=== PATIENT | male | born 1935 | race African-American/Black ===

== ENCOUNTER 2017-03-10 18:10 | Inpatient (IN) ==
[2017-03-10] MEDS ORDERED: HYDROmorphone 2 MG/1 ML VIAL IV STA (18:31)
[2017-03-10] MEDS ORDERED: ADENOSINE 6 MG/2 ML VIAL ONE ×2 (18:31→18:40)
[2017-03-10] MEDS ORDERED: ONDANSETRON 4 MG/2 ML VIAL IV STA (18:31)
[2017-03-10] MEDS ORDERED: ADENOSINE 6 MG/2 ML VIAL IV STA ×3 (18:31→18:58)
[2017-03-10] MEDS ORDERED: METOPROLOL TARTRATE 5 MG/5 ML VIAL IV ONE (18:39)
[2017-03-10 18:49] LABS: Basophils % 0.1 % (0.0-0.8); Eosinophils % 0.3 % (0.00-10.9); Hematocrit 39.3 VOL% (42.0-52.0); Hemoglobin 13.2 GM/DL (14.0-18.0); Immature Granulocytes % 0.2 %; Immature Granulocytes Absolute 0.02 #; Lymphocytes # 1.1 10*3/uL (1.4-4.0); Lymphocytes % 12.1 % (21.2-54.2); Mean Corpuscular HGB Conc 33.6 GM/DL (32-36); Mean Corpuscular Hemoglobin 34 PG (27-34); Mean Corpuscular Volume 100.8 FL (87-102); Monocytes # 0.2 10*3/uL (0.11-0.8); Monocytes % 2.3 % (1.7-12.7); Neutrophils # 7.4 10*3/uL (1.4-7.4); Platelet Count 208 T/CUMM (130-400); Red Cell Distribution Width 13.9 % (9.3-17.3); White Blood Count 8.7 T/CUMM (4-12)
[2017-03-10 18:57] LABS: PT Patient Result 10.6 SECS; Partial Thromboplastin Time 25.7 SECS (0-40)
[2017-03-10] MEDS ORDERED: METOPROLOL TARTRATE 5 MG/5 ML VIAL IV STA ×2 (19:00→22:08)
[2017-03-10 19:27] LABS: Troponin I Only < 0.015 NG/ML (0.00-0.045)
[2017-03-10 19:32] LABS: Barbiturates Screen,Urine Negative (Negative); Benzodiazepines Screen,Urine Negative (Negative); Cannabinoid Screen,Urine Negative (Negative); Opiate Screen,Urine Negative (Negative); Phencyclidine Screen,Urine Negative (Negative)
[2017-03-10 19:34] LABS: Albumin 4.2 G/DL (3.4-5.0); Bilirubin,Total 0.5 MG/DL (0.2-1.0); Calcium 10.7 MG/DL (8.5-10.1); Osmolality,Calculated 285.4 MOS/KG (273-304); Potassium 4.3 MMOL/L (3.5-5.1); Thyroid Stimulating Hormone 3.35 uIU/ml (0.358-3.74); Total Protein 8.3 G/DL (6.4-8.3)
[2017-03-10] MEDS ORDERED: HYDROmorphone 2 MG/1 ML VIAL ONE (19:38)
[2017-03-10] MEDS ORDERED: ONDANSETRON 4 MG/2 ML VIAL ONE (19:38)
[2017-03-10] MEDS ORDERED: GLUCAGON 1 MG VIAL IM PRN (22:08)
[2017-03-10] MEDS ORDERED: DEXTROSE 50% 25 GM/50 ML VIAL IV PRN (22:08)
[2017-03-10] MEDS ORDERED: ONDANSETRON 4 MG/2 ML VIAL IV PRN (22:08)
[2017-03-10] MEDS ORDERED: ACETAMINOPHEN 325 MG TABLET PO PRN (22:08)
[2017-03-10 22:41] LABS: Apearance,Urine Slightly Hazy (Clear); Bacteria,Urine Occasional /HPF (Few); Bilirubin,Urine Negative (Negative); Blood, Urine Small mg/dL (Negative); Glucose,Urine (UA) 50 mg/dL (Negative); Ketones,Urine 5 mg/dL (Negative); Mucus,Urine Occasional /LPF (Occasional); Nitrite,Urine Negative (Negative); Protein,Urine Negative; RBC,Urine <1 /HPF (0-4); Squamous Epithelial Cell,Urine Occasional /HPF (0-10); Urine Color Yellow (Yellow); Urine Specific Gravity 1.011 (1.001-1.035); Urine Urobilinogen < 2.0 EU/DL (0.2-1.0); WBC,Urine 1 /HPF (0-6)
[2017-03-10] MEDS: SODIUM CHLORIDE 0.9% 1,000 ML IV SCH (23:01)
[2017-03-10] MEDS: METOPROLOL TARTRATE 50 MG TABLET PO SCH (23:01)
[2017-03-11 00:01] LABS: Free T4 (Free Thyroxine) 1.07 NG/DL (0.76-1.46); Troponin I Only 0.039 NG/ML (0.00-0.045)
[2017-03-11] MEDS: INSULIN REGULAR 100 UNIT/ML SUBCUT SCH ×4 (00:52→23:46)
[2017-03-11 05:16] LABS: Basophils % 0.3 % (0.0-0.8); Eosinophils # 0.1 10*3/uL (0.0-0.87); Eosinophils % 1.3 % (0.00-10.9); Hematocrit 29.6 VOL% (42.0-52.0); Hemoglobin 10.1 GM/DL (14.0-18.0); Immature Granulocytes % 0.5 %; Immature Granulocytes Absolute 0.05 #; Lymphocytes # 0.6 10*3/uL (1.4-4.0); Lymphocytes % 6.2 % (21.2-54.2); Mean Corpuscular HGB Conc 34.1 GM/DL (32-36); Mean Corpuscular Hemoglobin 34 PG (27-34); Mean Corpuscular Volume 99.3 FL (87-102); Mean Platelet Volume 10.1 FL (9.6-12.0); Monocytes # 0.4 10*3/uL (0.11-0.8); Monocytes % 3.8 % (1.7-12.7); Neutrophils # 8.7 10*3/uL (1.4-7.4); Neutrophils % 87.9 % (38.7-73.9); Platelet Count 176 T/CUMM (130-400); Red Blood Count 2.98 MC/CUMM (3.8-5.5); Red Cell Distribution Width 13.9 % (9.3-17.3); White Blood Count 9.9 T/CUMM (4-12)
[2017-03-11 05:47] LABS: Troponin I Only 0.039 NG/ML (0.00-0.045)
[2017-03-11 05:48] LABS: Albumin 3.2 G/DL (3.4-5.0); Bilirubin,Total 1.1 MG/DL (0.2-1.0); Calcium 9.3 MG/DL (8.5-10.1); Osmolality,Calculated 289.3 MOS/KG (273-304); Potassium 4.6 MMOL/L (3.5-5.1); Risk Ratio 2.17; Total Protein 6.3 G/DL (6.4-8.3); VLDL CHOLESTEROL 8.4 MG/DL
[2017-03-11] MEDS: SERTRALINE 50 MG TABLET PO SCH (08:39)
[2017-03-11] MEDS: PANTOPRAZOLE 40 MG TABLET PO SCH (08:39)
[2017-03-11] MEDS: METOPROLOL TARTRATE 50 MG TABLET PO SCH ×2 (08:40→23:48)
[2017-03-11] MEDS: ATORVASTATIN 20 MG TABLET PO SCH (08:40)
[2017-03-11] MEDS ORDERED: ceFAZolin 2,000 MG in PREMIX 1 EACH IV ONE (11:30)
[2017-03-11] MEDS ORDERED: BISACODYL 10 MG SUPP RECTAL PRN (12:35)
[2017-03-11] MEDS ORDERED: diphenhydrAMINE CAP 25 MG CAPSULE PO PRN (12:35)
[2017-03-11] MEDS ORDERED: PROMETHAZINE 25 MG/1 ML VIAL IM PRN (12:35)
[2017-03-11] MEDS ORDERED: LACTULOSE 20 GM/30 ML UDCUP PO PRN (12:35)
[2017-03-11] MEDS ORDERED: MAGNESIUM HYDROXIDE SUSP 30 ML UDCUP PO PRN (12:35)
[2017-03-11] MEDS ORDERED: TEMAZEPAM 7.5 MG CAPSULE PO PRN (12:35)
[2017-03-11] MEDS ORDERED: MIDAZOLAM 2 MG/2 ML VIAL ONE (14:24)
[2017-03-11] MEDS ORDERED: PROPOFOL 200 MG/20 ML VIAL IV ONE (14:24)
[2017-03-11] MEDS ORDERED: fentaNYL 100 MCG/2 ML VIAL ONE (14:24)
[2017-03-11] MEDS ORDERED: LACTATED RINGERS 1,000 ML IV ONE (14:25)
[2017-03-11] MEDS: MORPHINE 2 MG/1 ML SYRINGE IV PRN (18:20)
[2017-03-11] MEDS: glipiZIDE 5 MG TABLET PO SCH (21:35)
[2017-03-11] MEDS: DOCUSATE SODIUM 100 MG CAPSULE PO SCH (21:35)
[2017-03-11] MEDS: ceFAZolin 2,000 MG in PREMIX 1 EACH IV SCH (22:40)
[2017-03-11] MEDS: GABAPENTIN 300 MG CAPSULE PO SCH (23:48)
[2017-03-12] MEDS: MORPHINE 2 MG/1 ML SYRINGE IV PRN ×2 (00:13→06:10)
[2017-03-12] MEDS: SODIUM CHLORIDE 0.9% 1,000 ML IV SCH ×3 (00:14→12:55)
[2017-03-12] MEDS: INSULIN REGULAR 100 UNIT/ML SUBCUT SCH ×4 (00:16→18:35)
[2017-03-12] MEDS: ceFAZolin 2,000 MG in PREMIX 1 EACH IV SCH (00:43)
[2017-03-12] MEDS: FONDAPARINUX 2.5 MG/0.5 ML SYRINGE SUBCUT SCH (06:09)
[2017-03-12 07:18] LABS: Basophils % 0.3 % (0.0-0.8); Eosinophils # 0.2 10*3/uL (0.0-0.87); Eosinophils % 2.6 % (0.00-10.9); Hematocrit 28.6 VOL% (42.0-52.0); Hemoglobin 9.7 GM/DL (14.0-18.0); Immature Granulocytes % 0.6 %; Immature Granulocytes Absolute 0.04 #; Lymphocytes # 0.8 10*3/uL (1.4-4.0); Lymphocytes % 11.3 % (21.2-54.2); Mean Corpuscular HGB Conc 33.9 GM/DL (32-36); Mean Corpuscular Hemoglobin 34 PG (27-34); Mean Platelet Volume 10.1 FL (9.6-12.0); Monocytes # 0.5 10*3/uL (0.11-0.8); Monocytes % 6.7 % (1.7-12.7); Neutrophils # 5.7 10*3/uL (1.4-7.4); Neutrophils % 78.5 % (38.7-73.9); Platelet Count 143 T/CUMM (130-400); Red Blood Count 2.89 MC/CUMM (3.8-5.5); Red Cell Distribution Width 14.2 % (9.3-17.3); White Blood Count 7.3 T/CUMM (4-12)
[2017-03-12 07:44] LABS: Calcium 8.9 MG/DL (8.5-10.1); Osmolality,Calculated 285.4 MOS/KG (273-304)
[2017-03-12] MEDS: GABAPENTIN 300 MG CAPSULE PO SCH ×2 (09:01→22:05)
[2017-03-12] MEDS: PIOGLITAZONE 15 MG TABLET PO SCH (09:01)
[2017-03-12] MEDS: SERTRALINE 50 MG TABLET PO SCH (09:01)
[2017-03-12] MEDS: METOPROLOL TARTRATE 50 MG TABLET PO SCH ×2 (09:01→22:05)
[2017-03-12] MEDS: PANTOPRAZOLE 40 MG TABLET PO SCH (09:01)
[2017-03-12] MEDS: DOCUSATE SODIUM 100 MG CAPSULE PO SCH ×2 (09:01→22:06)
[2017-03-12] MEDS: ATORVASTATIN 20 MG TABLET PO SCH (09:02)
[2017-03-12] MEDS: glipiZIDE 5 MG TABLET PO SCH ×2 (09:02→22:05)
[2017-03-12] MEDS: ASPIRIN EC 81 MG TABLET PO SCH (09:02)
[2017-03-13] MEDS: INSULIN REGULAR 100 UNIT/ML SUBCUT SCH ×4 (00:41→18:35)
[2017-03-13] MEDS: SODIUM CHLORIDE 0.9% 1,000 ML IV SCH (02:25)
[2017-03-13] MEDS: FONDAPARINUX 2.5 MG/0.5 ML SYRINGE SUBCUT SCH (06:38)
[2017-03-13 07:10] LABS: Basophils % 0.3 % (0.0-0.8); Eosinophils # 0.3 10*3/uL (0.0-0.87); Eosinophils % 4.3 % (0.00-10.9); Hematocrit 25.6 VOL% (42.0-52.0); Hemoglobin 8.8 GM/DL (14.0-18.0); Immature Granulocytes % 0.6 %; Immature Granulocytes Absolute 0.04 #; Lymphocytes # 0.9 10*3/uL (1.4-4.0); Lymphocytes % 12.6 % (21.2-54.2); Mean Corpuscular HGB Conc 34.4 GM/DL (32-36); Mean Corpuscular Hemoglobin 34 PG (27-34); Mean Corpuscular Volume 98.1 FL (87-102); Mean Platelet Volume 10.6 FL (9.6-12.0); Monocytes # 0.5 10*3/uL (0.11-0.8); Monocytes % 7.2 % (1.7-12.7); Neutrophils # 5.2 10*3/uL (1.4-7.4); Platelet Count 132 T/CUMM (130-400); Red Blood Count 2.61 MC/CUMM (3.8-5.5); Red Cell Distribution Width 14.1 % (9.3-17.3); White Blood Count 6.9 T/CUMM (4-12)
[2017-03-13] MEDS: ATORVASTATIN 20 MG TABLET PO SCH (08:22)
[2017-03-13] MEDS: METOPROLOL TARTRATE 50 MG TABLET PO SCH ×2 (08:23→20:37)
[2017-03-13] MEDS: DOCUSATE SODIUM 100 MG CAPSULE PO SCH ×2 (08:23→20:37)
[2017-03-13] MEDS: GABAPENTIN 300 MG CAPSULE PO SCH ×2 (08:24→20:37)
[2017-03-13] MEDS: ASPIRIN EC 81 MG TABLET PO SCH (08:24)
[2017-03-13] MEDS: PANTOPRAZOLE 40 MG TABLET PO SCH (08:24)
[2017-03-13] MEDS: SERTRALINE 50 MG TABLET PO SCH (08:24)
[2017-03-13] MEDS: PIOGLITAZONE 15 MG TABLET PO SCH (08:25)
[2017-03-13] MEDS: glipiZIDE 5 MG TABLET PO SCH ×2 (08:25→20:37)
[2017-03-14] MEDS: INSULIN REGULAR 100 UNIT/ML SUBCUT SCH ×4 (00:09→18:00)
[2017-03-14 05:02] LABS: Basophils % 0.2 % (0.0-0.8); Eosinophils # 0.4 10*3/uL (0.0-0.87); Eosinophils % 6.3 % (0.00-10.9); Hematocrit 22.2 VOL% (42.0-52.0); Hemoglobin 7.7 GM/DL (14.0-18.0); Immature Granulocytes % 0.4 %; Immature Granulocytes Absolute 0.02 #; Lymphocytes # 0.9 10*3/uL (1.4-4.0); Lymphocytes % 16.4 % (21.2-54.2); Mean Corpuscular HGB Conc 34.7 GM/DL (32-36); Mean Corpuscular Hemoglobin 34 PG (27-34); Mean Corpuscular Volume 97.8 FL (87-102); Mean Platelet Volume 10.8 FL (9.6-12.0); Monocytes # 0.5 10*3/uL (0.11-0.8); Monocytes % 8.6 % (1.7-12.7); Neutrophils # 3.8 10*3/uL (1.4-7.4); Neutrophils % 68.1 % (38.7-73.9); Platelet Count 131 T/CUMM (130-400); Red Blood Count 2.27 MC/CUMM (3.8-5.5); Red Cell Distribution Width 13.8 % (9.3-17.3); White Blood Count 5.6 T/CUMM (4-12)
[2017-03-14] MEDS: FONDAPARINUX 2.5 MG/0.5 ML SYRINGE SUBCUT SCH (06:12)
[2017-03-14] MEDS: PANTOPRAZOLE 40 MG TABLET PO SCH (08:04)
[2017-03-14] MEDS: PIOGLITAZONE 15 MG TABLET PO SCH (08:04)
[2017-03-14] MEDS: SERTRALINE 50 MG TABLET PO SCH (08:04)
[2017-03-14] MEDS: glipiZIDE 5 MG TABLET PO SCH ×2 (08:05→20:47)
[2017-03-14] MEDS: ASPIRIN EC 81 MG TABLET PO SCH (08:05)
[2017-03-14] MEDS: GABAPENTIN 300 MG CAPSULE PO SCH ×2 (08:05→20:47)
[2017-03-14] MEDS: ATORVASTATIN 20 MG TABLET PO SCH (08:05)
[2017-03-14] MEDS: METOPROLOL TARTRATE 50 MG TABLET PO SCH ×2 (08:06→20:47)
[2017-03-14] MEDS: DOCUSATE SODIUM 100 MG CAPSULE PO SCH ×2 (08:06→20:47)
[2017-03-14] MEDS ORDERED: SODIUM CHLORIDE 0.9% 1,000 ML IV PRN (09:00)
[2017-03-15] MEDS: INSULIN REGULAR 100 UNIT/ML SUBCUT SCH ×4 (00:22→17:55)
[2017-03-15 04:35] LABS: Hematocrit 27.2 VOL% (42.0-52.0); Hemoglobin 9.5 GM/DL (14.0-18.0)
[2017-03-15] MEDS: FONDAPARINUX 2.5 MG/0.5 ML SYRINGE SUBCUT SCH (05:50)
[2017-03-15] MEDS: PIOGLITAZONE 15 MG TABLET PO SCH (10:04)
[2017-03-15] MEDS: METOPROLOL TARTRATE 50 MG TABLET PO SCH (10:05)
[2017-03-15] MEDS: DOCUSATE SODIUM 100 MG CAPSULE PO SCH (10:05)
[2017-03-15] MEDS: ATORVASTATIN 20 MG TABLET PO SCH (10:05)
[2017-03-15] MEDS: glipiZIDE 5 MG TABLET PO SCH (10:05)
[2017-03-15] MEDS: ASPIRIN EC 81 MG TABLET PO SCH (10:05)
[2017-03-15] MEDS: PANTOPRAZOLE 40 MG TABLET PO SCH (10:06)
[2017-03-15] MEDS: GABAPENTIN 300 MG CAPSULE PO SCH (10:06)
[2017-03-15] MEDS: SERTRALINE 50 MG TABLET PO SCH (10:06)
[2017-03-15 16:32] VITALS: BP 126/60
== END 2017-03-15 19:11 | disposition swing bed (61) | DRG 470 ==
LOC: EDUNIT# → EDBD → N.ED 18:10 → N.EDINP 20:04 → N.TELEN 21:21 → N.3E 03-11 15:04
PROVIDERS: ADMIT Internal Medicine Geriatric Medicine; ATTEND Internal Medicine Geriatric Medicine